=== PATIENT | female | born 1970 | race Caucasian/White ===

== ENCOUNTER → 2020-04-03 | Outpatient (CLI) | payer BC, OTHER | LOC: RAD 14:28 | DX: R05 Cough (principal) | CPT/HCPCS: 71046 ==

== ENCOUNTER → 2020-04-21 | Outpatient (CLI) | payer BC, OTHER | LOC: RAD 12:57 | DX: M54.5 Low back pain (principal); M25.552 Pain in left hip; M48.07 Spinal stenosis, lumbosacral region; M89.8X8 Other specified disorders of bone, other site | CPT/HCPCS: 72110; 73502 ==

== ENCOUNTER → 2020-06-04 | Outpatient (CLI) | payer BC, OTHER | LOC: RAD 15:30 | DX: M79.671 Pain in right foot (principal); M79.672 Pain in left foot; M25.571 Pain in right ankle and joints of right foot; M79.89 Other specified soft tissue disorders | CPT/HCPCS: 73610; 73630 ==

== ENCOUNTER → 2021-07-29 | Outpatient (CLI) | payer BC | LOC: KOH-I 11:06 | DX: M54.16 Radiculopathy, lumbar region (principal); M47.814 Spondylosis without myelopathy or radiculopathy, thoracic region | CPT/HCPCS: 72146 ==

== ENCOUNTER → 2021-11-16 | Outpatient (CLI) | payer BC | LOC: LAB 15:20 | DX: M54.16 Radiculopathy, lumbar region (principal) | CPT/HCPCS: 36415; 83036 ==

== ENCOUNTER → 2021-11-19 | Outpatient (CLI) | payer BC | LOC: LAB 11:10 → RAD 11:10 | DX: M47.26 Other spondylosis with radiculopathy, lumbar region (principal); M48.07 Spinal stenosis, lumbosacral region | CPT/HCPCS: 72100; 87081 ==